=== PATIENT | male | born 2000 | race Caucasian/White ===

== ENCOUNTER 2020-06-03 14:45 | Outpatient (CLI) | payer OTHER, SELFPAY ==
[2020-06-03 15:27] LABS: SARS-CoV-2 Ag Positive (Negative)
== END 2020-06-03 14:46 | disposition home or self-care (01) ==
LOC: CHSLAB 14:48
PROVIDERS: PCP Internal Medicine; Visit Provider Family Medicine
DX: U07.1 COVID-19 (principal)
CPT/HCPCS: 87426; C9803

== ENCOUNTER 2024-08-03 07:40 | Emergency (ER) | payer BC, SELFPAY ==
[2024-08-03] VITALS (9 sets, daily range): BP systolic 100–140; BP diastolic 58–88; PULSE 91–118; RESP 16–20; TEMP 36.6–37.7; O2SAT 100
--- NOTE | 2024-08-03 07:55 | PC.NURSE ---
Covid culture sent to lab
--- NOTE | 2024-08-03 07:56 | ED.URI ---
HPI - URI/Sore Throat General Chief Complaint: Upper Respiratory Infection Stated Complaint: vomiting Time Seen by Provider: 08/03/24 07:55 Source: patient Mode of arrival: ambulatory Limitations: no limitations History of Present Illness HPI Narrative: Patient is a 23-year-old male with bilateral hand and bilateral feet numbness at times since last night as well as some cramps in the hands. He has been having nausea vomiting and diarrhea with myalgias and not feeling. associated occasional chest pain and shortness of breath. he is not having anxiety nor does he appear anxious. MD elicited complaint: cough, rhinorrhea and nasal congestion Pertinent past history: other ( None) Onset (ago): day(s) ( Two) Consistency: constant Severity: mild Pain scale (0-10): 3 Description of mucous: clear Able to tolerate fluids by mouth: Yes Exacerbating factors: nothing Relieving factors: nothing Context: sick contacts and other(s) with similar symptoms Associated symptoms: chest pain, shortness of breath and other ( bilateral hands and feet numbness and tingling with cramping of the hands) Treatments prior to arrival: none Related Data Allergies Allergy/AdvReac Type Severity Reaction Status Date / Time No Known Allergies Allergy Verified 08/03/24 07:42 Review of Systems Review of Systems: All systems reviewed & are unremarkable except as noted in HPI and below Constitutional: Constitutional: Reports no additional constitutional complaints Eyes: Eyes: Reports no additional eye complaints ENT: Reports system reviewed and no additional complaints, except as documented Cardiovascular: Cardiovascular: Reports no additional cardiovascular complaints Respiratory: Respiratory: Reports no additional respiratory complaints Gastrointestinal: Gastrointestinal: Reports no additional gastrointestinal complaints Genitourinary: Genitourinary: Reports no additional male genitourinary complaints Musculoskeletal: Musculoskeletal: Reports no additional musculoskeletal complaints Integumentary/Breasts: Skin/Breast: Reports system reviewed and no additional complaints, except as docu Neurologic: Reports system reviewed and no additional complaints, except as documented Psychiatric: Psychiatric: Reports no additional psychiatric complaints Endocrine: Endocrine: Reports no additional endocrine complaints Hematologic/Lymphatic: Hematologic/Lymphatic: Reports no additional hematologic/lymphatic complaints Exam Const: General: healthy appearing Nutritional Appearance: well nourished Orientation/consciousness: patient oriented x3 Limitations: no limitations HENMT: Head: normal to inspection Ears: external ears normal Face/Nose/Sinus: Normal external nose present Eyes: Conjunctivae: conjunctivae normal Pupils: Equal, round and reactive pupils present EOM: EOMs intact bilaterally Chest: Chest palpation & inspection: normal inspection of the chest Resp: Effort & Inspection: normal respiratory effort and not labored Auscultation: clear to auscultation bilaterally and no crackles Cardio: Rate: regular rate Rhythm: regular rhythm Heart sounds: no murmurs GI: Inspection: distended GI Palp: Yes Soft to palpation, No Tenderness to palpation present (GI), No Guarding due to palpation present (GI), No Rigid due to palpation, No Hernia present, No Palpable mass present and No Rebound tenderness present Auscultation: normal bowel sounds : General: Yes bladder normal to palpation Back/Spine/Pelvis: Back: no CVA tenderness Skin: General skin exam: normal color Rashes: no rashes Wounds: no wounds Neuro: General: patient oriented x3 Cranial nerves: Yes Nystagmus not present Extrem: General: normal to inspection Psych: Mental Status: mental status grossly normal Affect: normal affect Attitude: cooperative Course Vital Signs Vital signs: Vital Signs Temperature 36.6 C 08/03/24 07:43 Pulse Rate 118 H 08/03/24 07:43 Respiratory Rate 18 08/03/24 07:43 Blood Pressure 140/88 08/03/24 07:43 Pulse Oximetry 100 08/03/24 07:43 Oxygen Delivery Room Air 08/03/24 07:43 Temperature 36.6 C 08/03/24 07:43 Pulse Rate 118 H 08/03/24 07:43 Respiratory Rate 18 08/03/24 07:43 Blood Pressure 140/88 08/03/24 07:43 Pulse Oximetry 100 08/03/24 07:49 Oxygen Delivery Room Air 08/03/24 07:49 MDM - URI/Sore Throat MDM Narrative Medical decision making narrative: Patient is a 23-year-old male with some bilateral hand and feet numbness and tingling with associated chest pain and shortness of breath at times and nausea vomiting diarrhea. He appears that he may have some anxiety component as well as electrolyte imbalance with the diarrhea. We will go ahead and check some labs and a COVID swab panel. Check EKG. at time of discharge, symptoms have gotten better. Lab Data Attestation: I reviewed the patient's lab results. 08/03/24 09:28 08/03/24 09:28 Labs: Lab Results 08/03/24 08/03/24 Range/Units 07:54 09:28 WBC 14.8 H (4.8-10.8) K/mm3 RBC 5.35 (4.70-6.10) M/mm3 Hgb 15.3 (14.0-18.0) g/dL Hct 44.8 (40.0-54.0) % MCV 83.7 (78.0-102.0) fL MCH 28.6 (27.0-31.0) pg MCHC 34.2 (32-36) g/dL RDW 12.7 (11.6-14.4) % Plt Count 244 (150-420) K/mm3 MPV 10.3 (8.7-11.0) fl Immature Gran % (Auto) 0.4 H (0.0-0.0) % Neut % (Auto) 92.2 H (50.0-70.0) % Lymph % (Auto) 2.5 L (18.0-42.0) % [place] % (Auto) 4.6 (2.0-11.0) % Eos % (Auto) 0.1 L (1.0-6.0) % Baso % (Auto) 0.2 (0.0-1.0) % Lymph # (Auto) 0.37 L (1.10-4.50) K/mm3 [place] # (Auto) 0.68 (0.10-0.90) K/mm3 Eos # (Auto) 0.01 L (0.02-0.50) K/mm3 Baso # (Auto) 0.03 (0.00-0.10) K/mm3 Abs Immat Gran (auto) 0.06 H (0.00-0.00) K/mm3 Absolute Neuts (auto) 13.63 H (1.70-7.20) K/mm3 Absolute Nucleated RBC 0.00 (0.00-0.00) K/mm3 Nucleated RBC % 0.0 (0-0.0) % PT 11.6 (9.50-12.1) Seconds INR 1.1 APTT 25.4 (23.9-30.70) Sec D-Dimer 2.34 H* (0.19-0.50) mg/L Sodium 141 (136-145) mmol/L Potassium 3.4 L (3.5-5.1) mmol/L Chloride 102 (98-108) mmol/L Carbon Dioxide 21 (21-32) mmol/L Anion Gap 18 H (4-12) mmol/L BUN 12 (7-18) mg/dL Creatinine 1.12 (0.70-1.30) mg/dL Estim Creat Clear Calc 94 ml/min Estimated GFR > 60 (59 - ) Glucose 110 H (70-99) mg/dL Calculated Osmolality 292 (285-295) mOsm/kg Calcium 9.9 (8.5-10.1) mg/dL Magnesium 1.4 L (1.8-2.4) mg/dL Total Bilirubin 1.6 H (0.00-1.00) mg/dL AST 18 (15-37) U/L ALT 24 (16-63) U/L Alkaline Phosphatase 79 (46-116) U/L Troponin I < 4.0 (0.00-60.4) ng/L Total Protein 7.9 (6.4-8.2) g/dL Albumin 4.4 (3.4-5.0) g/dL Influenza A (RT-PCR) Negative (Negative) Influenza B (RT-PCR) Negative (Negative) RSV (RT-PCR) Negative (Negative) SARS-CoV-2 RNA (RT-PCR) Negative (Negative) Imaging Data Attestation: I personally reviewed and interpreted this imaging study as follows: Radiologist's impression: CTA of the chest was negative for PE and otherwise clear ECG Data EKG #1: Attestation: I personally reviewed and interpreted this ECG as follows: ECG completion date: 08/03/24 ECG completion time: 09:49 EKG Interpretation: normal rate, sinus rhythm, no ectopy, non-specific ST changes, normal QRS, normal QT and NL axis Discharge Plan Discharge Clinical Impression: Gastroenteritis, Viral syndrome Patient Disposition: Home, Self-Care Condition: Stable Instructions: Gastroenteritis (DC), Viral Syndrome (ED) Patient Language: Israeli Follow-up/Referrals: Bertin Sue MD [Primary Care Provider] - Time of Disposition: 11:06
[2024-08-03 08:33] LABS: SARS-CoV-2 RNA PCR Negative (Negative)
[2024-08-03 08:36] LABS: Influenza A QL RT-PCR Negative (Negative); Influenza B QL RT-PCR Negative (Negative); RSV RNA, RT-PCR Negative (Negative)
[2024-08-03 09:35] LABS: Basophils Absolute Auto 0.03 K/mm3 (0.00-0.10); Basophils Percent Auto 0.2 % (0.0-1.0); Eosinophils Absolute Auto 0.01 K/mm3 (0.02-0.50); Eosinophils Percent Auto 0.1 % (1.0-6.0); Hematocrit 44.8 % (40.0-54.0); Hemoglobin 15.3 g/dL (14.0-18.0); Immature Granulocyte Absolute 0.06 K/mm3 (0.00-0.00); Immature Granulocyte Percent A 0.4 % (0.0-0.0); Lymphocytes Absolute Auto 0.37 K/mm3 (1.10-4.50); Lymphocytes Percent Auto 2.5 % (18.0-42.0); Mean Corpuscular HGB Conc 34.2 g/dL (32-36); Mean Corpuscular Hemoglobin 28.6 pg (27.0-31.0); Mean Corpuscular Volume 83.7 fL (78.0-102.0); Mean Platelet Volume 10.3 fl (8.7-11.0); Monocytes Absolute Auto 0.68 K/mm3 (0.10-0.90); Monocytes Percent Auto 4.6 % (2.0-11.0); Neutrophils Absolute Auto 13.63 K/mm3 (1.70-7.20); Neutrophils Percent Auto 92.2 % (50.0-70.0); Platelet Count Result 244 K/mm3 (150-420); Red Blood Count 5.35 M/mm3 (4.70-6.10); Red Cell Distribution Width 12.7 % (11.6-14.4); White Blood Count 14.8 K/mm3 (4.8-10.8)
[2024-08-03 09:48] LABS: INR 1.1; Partial Thromboplastin Time 25.4 Sec (23.9-30.70); Prothrombin Time 11.6 Seconds (9.50-12.1)
[2024-08-03 09:52] LABS: Alanine Aminotransferase 24 U/L (16-63); Albumin Level 4.4 g/dL (3.4-5.0); Alkaline Phosphatase 79 U/L (46-116); Anion Gap 18 mmol/L (4-12); Aspartate Amino Transferase 18 U/L (15-37); Bilirubin,Total 1.6 mg/dL (0.00-1.00); Blood Urea Nitrogen 12 mg/dL (7-18); Calcium 9.9 mg/dL (8.5-10.1); Carbon Dioxide 21 mmol/L (21-32); Chloride 102 mmol/L (98-108); Estimated CRCL calculation 94 ml/min; Estimated Glomerular Filt Rate > 60; Glucose 110 mg/dL (70-99); Magnesium 1.4 mg/dL (1.8-2.4); Osmolality Calculated 292 mOsm/kg (285-295); Potassium 3.4 mmol/L (3.5-5.1); Sodium 141 mmol/L (136-145); Total Protein 7.9 g/dL (6.4-8.2)
[2024-08-03 09:53] LABS: Troponin I < 4.0 ng/L (0.00-60.4)
[2024-08-03 09:54] LABS: D Dimer 2.34 mg/L (0.19-0.50)
--- NOTE | 2024-08-03 10:22 | PC.NURSE ---
Patient back in room from CT.
== END 2024-08-03 11:16 | disposition home or self-care (01) ==
PROVIDERS: Emergency Provider Emergency Medicine; PCP Internal Medicine
DX: K52.9 Noninfective gastroenteritis and colitis, unspecified (principal); B34.9 Viral infection, unspecified; Z20.822 Contact with and (suspected) exposure to COVID-19
CPT/HCPCS: 36415; 71275; 80053; 83735; 84484; 85025; 85380; 85610; 85730; 87637; 93005; 99284; Q9967